=== PATIENT | female | born 1980 | race Caucasian/White ===

== ENCOUNTER 2016-06-24 13:57 | Emergency (ER) | payer BC ==
[2016-06-24 14:11] VITALS: BP 144/81
[2016-06-24] MEDS ORDERED: Sodium Chloride 0.9% 1,000 ML IV ONE (14:47)
--- NOTE | 2016-06-24 14:47 | EDM.PDOC ---
ED HPI GENERAL MEDICAL PROBLEM - General Chief Complaint: General Stated Complaint: dizzy/trouble walking Time Seen by Provider: 06/24/16 14:30 Source of Information: Reports: Patient History Limitations: Reports: No limitations - History of Present Illness INITIAL COMMENTS - FREE TEXT/NARRATIVE: HISTORY AND PHYSICAL: History of present illness: [Patient comes to the emergency room for evaluation of dizziness which began at 9 PM last night. She feels as though it's worsened today. She was diagnosed with a sinus infection one week ago by a nurse practitioner at [facility] and has completed one week of amoxicillin. She was seen back only if it is today where a physical therapist attempted maneuvers to reduce the vertigo. This was unsuccessful and she was referred to the ER for further evaluation. She complains of feeling as though the room is spinning around her which is causing nausea. She had 4 episodes of vomiting earlier today. Denies fever and chills. Overall her sinus symptoms have improved since starting the amoxicillin. No abdominal pain, chest pain, shortness of breath or difficulty breathing. She has not fallen or had. No recent trauma or injuries.] Review of systems: As per history of present illness and below otherwise all systems reviewed and negative. Past medical history: As per history of present illness and as reviewed below otherwise noncontributory. Surgical history: As per history of present illness and as reviewed below otherwise noncontributory. Social history: No reported history of drug or alcohol abuse. Family history: As per history of present illness and as reviewed below otherwise noncontributory. Physical exam: HEENT: Atraumatic, normocephalic. PERRLA. EOMI. negative for conjunctival pallor or scleral icterus. TMs are pearly bonner and intact bilaterally. mucous membranes moist, throat clear, bases nontender with palpation. neck supple, nontender, no lymphadenopathy. Lungs: Clear to auscultation, breath sounds equal bilaterally. No wheezing crackles or rales. Heart: S1S2, regular rate and rhythm. Abdomen: Soft, nondistended, nontender. Genitourinary: Deferred. Rectal: Deferred. Extremities: Atraumatic, no swelling or cyanosis. Feels dizzy with sitting at the edge of bed. Neurovascular unremarkable. Neuro: Awake, alert, oriented. Cranial nerves II through XII unremarkable. Cerebellum unremarkable. Motor and sensory unremarkable throughout. Exam nonfocal. Diagnostics: [CT head w/o contrast ] Therapeutics: [Valium 2.5mg IV, 1 liter NS] Impression: [vertigo] Plan: Discussed with patient that head CT is unremarkable. Patient reports moderate improvement in symptoms with IV fluids and Valium. Rx is given for Meclizine 25 mg #20 sig one by mouth every 8 hours as needed for dizziness zero refills. Followup with PT and PCP tomorrow. Return to ER as needed as discussed. She is in agreement with today's plan all of her questions are answered and concerns are addressed.] Definitive disposition and diagnosis as appropriate pending reevaluation and review of above. - Related Data Allergies Allergy/AdvReac Type Severity Reaction Status Date / Time No Known Allergies Allergy Verified 06/24/16 14:08 Home Meds: Home Meds Amoxicillin/Potassium Clav [Amox Tr-K Clv 875-125 mg Tab] 1 each PO BID [History] Fluticasone Propionate [Flonase] 1 puff NASBOTH DAILY 06/24/16 [History] Past Medical History - Past Health History Medical/Surgical History: Denies Medical/Surgical History Social & Family History - Family History Family Medical History: Noncontributory - Tobacco Use Smoking Status *Q: Never Smoker Years of Tobacco use: 15 Second Hand Smoke Exposure: No - Caffeine Use Caffeine Use: Reports: None - Recreational Drug Use Recreational Drug Use: No ED ROS GENERAL - Review of Systems Review Of Systems: ROS reveals no pertinent complaints other than HPI. ED EXAM, GENERAL - Physical Exam Exam: See Below Course - Vital Signs Last Recorded V/S: Last Vital Signs Temp 97.8 F 06/24/16 14:08 Pulse 79 06/24/16 14:08 Resp 16 06/24/16 14:08 BP 144/81 H 06/24/16 14:08 Pulse Ox 97 06/24/16 14:08 - Orders/Labs/Meds Meds: Medications Discontinued Medications Generic Name Dose Route Start Last Admin Trade Name Freq PRN Reason Stop Dose Admin Diazepam 2.5 mg 06/24/16 14:47 06/24/16 15:32 Valium IVPUSH 06/24/16 14:48 2.5 mg ONETIME ONE Administration Sodium Chloride 1,000 mls @ 999 mls/hr 06/24/16 14:47 06/24/16 15:33 Normal Saline IV 06/24/16 15:47 999 mls/hr STAT ONE Administration Ondansetron HCl 4 mg 06/24/16 16:10 06/24/16 16:28 Zofran IVPUSH 06/24/16 16:11 4 mg ONETIME ONE Administration Departure - Departure Time of Disposition: 17:00 Disposition: Home, Self-Care 01 Condition: good Clinical Impression: Vertigo - Discharge Information Instructions: Vertigo, [id number] Referrals: PCP,None [Primary Care Provider] - Forms: ED Department Discharge Additional Instructions: The following information is given to patients seen in the emergency department who are being discharged to home. This information is to outline your options for follow-up care. We provide all patients seen in our emergency department with a follow-up referral. The need for follow-up, as well as the timing and circumstances, are variable depending upon the specifics of your emergency department visit. If you don't have a primary care physician on staff, we will provide you with a referral. We always advise you to contact your personal physician following an emergency department visit to inform them of the circumstance of the visit and for follow-up with them and/or the need for any referrals to a consulting specialist. The emergency department will also refer you to a specialist when appropriate. This referral assures that you have the opportunity for follow-up care with a specialist. All of these measure are taken in an effort to provide you with optimal care, which includes your follow-up. Under all circumstances we always encourage you to contact your private physician who remains a resource for coordinating your care. When calling for follow-up care, please make the office aware that this follow-up is from your recent emergency room visit. If for any reason you are refused follow-up, please contact the [facility] emergency department at and asked to speak to the emergency department charge nurse. [facility] [address] [place] [id number] Followup with your primary care provider or at the clinic listed above in 48-72 hours. You have vertigo. You can take meclizine every 8 hours as prescribed, as needed for dizziness. Return to ER as needed as discussed.
[2016-06-24] MEDS ORDERED: Ondansetron 4 MG/2 ML SDV IVPUSH ONE (16:10)
--- NOTE | 2016-06-24 16:15 | CT ---
EXAMINATION: Non contrast CT head. Coronal and sagittal reformats. HISTORY: pain FINDINGS: No evidence of intra or extra axial hemorrhage, mass, midline shift, hydrocephalus or edema. No hypoattenuation changes in the major vascular territories to suggest acute infarct. No abnormal intracranial calcifications are detected. No evidence of substantial vascular calcifica tions. Paranasal sinuses and mastoid air cells are well aerated without substantial findings. Pituitary fossa appears unremarkable. Calvarium is intact. No evidence of skull fracture. IMPRESSION: No acute intracranial findings.
== END 2016-06-24 17:08 | disposition home or self-care (01) ==
LOC: MW.ED 13:57
DX: R42 Dizziness and giddiness (principal)
CPT/HCPCS: 70450; 96361; 96374; 96375; 99284; J2405; J3360; J7040

== ENCOUNTER 2016-08-27 06:25 | Day surgery (SDC) | payer BC ==
[2016-08-26 14:44] LABS: CHLORIDE,CL 107 mmol/L (98-110); SODIUM,NA 140 mmol/L (136-146)
[~2016-08-27 06:25] MED LIST: Sodium Chloride 0.9% 10 ML Syringe FLUSH PRN; Sodium Chloride 0.9% 2.5 ML Syringe FLUSH PRN; ceFAZolin 2 GM in Premix Bag 1 BAG IV ONE
[2016-08-27] MEDS: Lactated Ringers 1,000 ML IV SCH ×2 (06:38→11:13)
[2016-08-27] MEDS ORDERED: Rocuronium 10 MG/ML 10 ML Syringe ONE (07:04)
[2016-08-27] MEDS ORDERED: Propofol 200 MG/20 ML SDV ONE (07:04)
[2016-08-27] MEDS ORDERED: Ondansetron 4 MG/2 ML SDV ONE (07:04)
[2016-08-27] MEDS ORDERED: Neostigmine Methylsulfate 1 MG/ML 5 ML Syringe ONE (07:04)
[2016-08-27] MEDS ORDERED: Midazolam 1 MG/ML 2 ML SDV ONE ×2 (07:04→10:10)
[2016-08-27] MEDS ORDERED: fentaNYL 250 MCG/5 ML SDV ONE (07:04)
[2016-08-27] MEDS ORDERED: Lidocaine 2% 5 ML SDV ONE (07:04)
[2016-08-27] MEDS ORDERED: Sodium Chloride 0.9% 20 ML ONE (07:07)
[2016-08-27] MEDS ORDERED: ceFAZolin 1 GM Vial ONE (07:07)
--- NOTE | 2016-08-27 07:12 | PCM.PREANE ---
Preanesthetic Assessment - Anesthesia/Transfusion/Family Hx Anesthesia History: No Prior Anesthesia Family History of Anesthesia Reaction: No Transfusion History: No Prior Transfusion(s) Intubation History: Unknown - Review of Systems General: No Symptoms Pulmonary: No Symptoms Cardiovascular: No Symptoms Gastrointestinal: No symptoms Neurological: No Symptoms Other: Reports: None - Physical Assessment O2 Sat by Pulse Oximetry: 97 Respiratory Rate: 16 Vital Signs: Last Vital Signs Temp 36.3 C 08/27/16 06:34 Pulse 95 08/27/16 06:34 Resp 16 08/27/16 06:34 BP 126/78 08/27/16 06:34 Pulse Ox 97 08/27/16 06:34 Height: 1.7 m Weight: 96.615 kg ASA Class: 2 Mental Status: Alert & Oriented x3 Airway Class: Mallampati = 2 Dentition: Reports: Normal Dentition Thyro-Mental Finger Breadths: 3 Mouth Opening Finger Breadths: 2 ROM/Head Extension: Full Lungs: Clear to auscultation, Normal respiratory effort Cardiovascular: Regular Rate, Regular Rhythm - Lab Values: Laboratory Last Values WBC 6.69 K/uL (4.0-11.0) 08/26/16 14:17 RBC 4.58 M/uL (4.30-5.90) 08/26/16 14:17 Hgb 12.8 g/dL (12.0-16.0) 08/26/16 14:17 Hct 38.8 % (36.0-46.0) 08/26/16 14:17 MCV 84.7 fL (80.0-98.0) 08/26/16 14:17 MCH 27.9 pg (27.0-32.0) 08/26/16 14:17 MCHC 33.0 g/dL (31.0-37.0) 08/26/16 14:17 RDW Std Deviation 40.7 fl (28.0-62.0) 08/26/16 14:17 RDW Coeff of Rehan 13 % (11.0-15.0) 08/26/16 14:17 Plt Count 214 K/uL (150-400) 08/26/16 14:17 MPV 10.40 fL (7.40-12.00) 08/26/16 14:17 Nucleated RBC % 0.0 /100WBC 08/26/16 14:17 Nucleated RBCs # 0 K/uL 08/26/16 14:17 Sodium 140 mmol/L (136-146) 08/26/16 14:17 Potassium 3.7 mmol/L (3.5-5.1) 08/26/16 14:17 Chloride 107 mmol/L (98-110) 08/26/16 14:17 Carbon Dioxide 24 mmol/L (21-31) 08/26/16 14:17 BUN 11 mg/dL (6.0-23.0) 08/26/16 14:17 Creatinine 0.8 mg/dL (0.6-1.5) 08/26/16 14:17 Est Cr Clr Drug Dosing 92.72 mL/min 08/26/16 14:17 Estimated GFR (MDRD) > 60.0 ml/min 08/26/16 14:17 Glucose 111 mg/dL (60-110) H 08/26/16 14:17 Calcium 8.9 mg/dL (8.8-10.8) 08/26/16 14:17 HCG, Qual NEGATIVE (NEG) 08/26/16 14:17 Blood Type A POSITIVE 08/26/16 14:17 Antibody Screen NEGATIVE 08/26/16 14:17 - Allergies Allergies/Adverse Reactions: Allergies Allergy/AdvReac Type Severity Reaction Status Date / Time No Known Allergies Allergy Verified 06/24/16 14:08 - Blood Blood Available: No - Anesthesia Plan Pre-Op Medication Ordered: None - Acknowledgements Anesthesia Type Planned: General Anesthesia Pt an Appropriate Candidate for the Planned Anesthesia: Yes Alternatives and Risks of Anesthesia Discussed w Pt/Guardian: Yes Pt/Guardian Understands and Agrees with Anesthesia Plan: Yes PreAnesthesia Questionnaire - Past Health History Medical/Surgical History: Denies Medical/Surgical History HEENT History: Reports: Other (See Below) Other HEENT History: wears glasses BUSINESS PROCESS ENGINEER History: Reports: Dysfunctional Uterine Bleeding, Endocrine/Metabolic History: Reports: Obesity/BMI 30+ - Past Surgical History Head Surgeries/Procedures: Reports: None - SUBSTANCE USE Smoking Status *Q: Former Smoker (quit about 2 years ago) Second Hand Smoke Exposure: No Recreational Drug Use History: No - HOME MEDS Home Medications: Home Meds . [No Known Home Meds] 08/24/16 [History] - CURRENT (IN HOUSE) MEDS Current Meds: Current Medications Lactated Ringer's (Ringers, Lactated) 1,000 mls @ 125 mls/hr IV ASDIRECTED SHELLY Last Admin: 08/27/16 06:38 Dose: 125 mls/hr Sodium Chloride (Saline Flush) 10 ml FLUSH ASDIRECTED PRN PRN Reason: Keep Vein Open Sodium Chloride (Saline Flush) 2.5 ml FLUSH ASDIRECTED PRN PRN Reason: Keep Vein Open Discontinued Medications Fentanyl (Sublimaze) Confirm Administered Dose 250 mcg .ROUTE .STK-MED ONE Stop: 08/27/16 07:05 Glycopyrrolate () Confirm Administered Dose 1 mg .ROUTE .STK-MED ONE Stop: 08/27/16 07:05 Cefazolin Sodium/Dextrose 2 gm (/ Premix) 50 mls @ 100 mls/hr IV ONETIME ONE Stop: 08/26/16 14:36 Lidocaine (Xylocaine-Mpf 2%) Confirm Administered Dose 5 ml .ROUTE .STK-MED ONE Stop: 08/27/16 07:05 Midazolam HCl (Versed 1 Mg/Ml) Confirm Administered Dose 2 mg .ROUTE .STK-MED ONE Stop: 08/27/16 07:05 Neostigmine Methylsulfate (Neostigmine) Confirm Administered Dose 5 mg .ROUTE .STK-MED ONE Stop: 08/27/16 07:05 Ondansetron HCl (Zofran) Confirm Administered Dose 4 mg .ROUTE .STK-MED ONE Stop: 08/27/16 07:05 Propofol (Diprivan 20 Ml) Confirm Administered Dose 200 mg .ROUTE .STK-MED ONE Stop: 08/27/16 07:05 Rocuronium [place] (Zemuron) Confirm Administered Dose 100 mg .ROUTE .STK-MED ONE Stop: 08/27/16 07:05
[2016-08-27] MEDS ORDERED: Fluorescein 5 ML Vial ONE (07:43)
[2016-08-27] MEDS ORDERED: Furosemide 40 MG/4 ML VIAL ONE (08:55)
[2016-08-27] MEDS ORDERED: ePHEDrine 50 MG/ML SDV ONE (09:17)
[2016-08-27] MEDS ORDERED: Dexamethasone 4 MG/ML 5 ML MDV ONE (09:24)
[2016-08-27] MEDS ORDERED: fentaNYL 100 MCG/2 ML SDV ONE ×2 (09:25→10:10)
[2016-08-27] MEDS ORDERED: Ketorolac 30 MG/ML SDV IVPUSH PRN (09:45)
[2016-08-27] MEDS ORDERED: Promethazine 25 MG/ML SDV IM PRN (09:45)
[2016-08-27] MEDS ORDERED: Ondansetron 4 MG/2 ML SDV IVPUSH PRN (09:45)
--- NOTE | 2016-08-27 09:49 | PCM.OPNOTE ---
- General Post-Op/Procedure Note Date of Surgery/Procedure: 08/27/16 Operative Procedure(s): TVH, Bilat.Salpengectomy and cystoscopy Pre Op Diagnosis: menorraghia Post-Op Diagnosis: Same Anesthesia Technique: General ET tube Primary Surgeon: Bob Horton Jackscrew Worker: Yumiko Flower EBL in mLs: 100 Complications: None Condition: Good
[2016-08-27] MEDS: fentaNYL 100 MCG/2 ML SDV IVPUSH PRN ×2 (10:15→10:20)
--- NOTE | 2016-08-27 10:28 | PCM.POSTAN ---
POST ANESTHESIA ASSESSMENT - MENTAL STATUS Mental Status: alert, oriented - RESPIRATORY Respiratory Status: respiratory rate WNL, airway patent, O2 saturation stable - CARDIOVASCULAR CV Status: pulse rate WNL, blood pressure stable - GASTROINTESTINAL GI Status: no symptoms - PAIN Pain Score: 5 - POST OP HYDRATION Hydration Status: adequate & stable - OBSERVATIONS Free Text/Narrative:: no anesthesia problems
--- NOTE | 2016-08-27 10:56 | OR ---
SURGEON: Bob Horton MD DATE OF PROCEDURE: PREOPERATIVE DIAGNOSIS: Menometrorrhagia. POSTOPERATIVE DIAGNOSIS: Menometrorrhagia. OPERATION PERFORMED: Total vaginal hysterectomy, bilateral salpingectomy, preserving both ovary and cystoscopy. ROW BOSS: MESERET Paez. ANESTHESIA: General endotracheal intubation, Pedro Pantoja and Dr. Anderson. ESTIMATED BLOOD LOSS: Less than 100 mL. COMPLICATIONS: None. FINDINGS: Uterus about 8 weeks' size. Both ovaries are essentially normal. INDICATIONS FOR SURGERY: Ryder refer to the admit note. PROCEDURE IN DETAIL: The patient was brought to the OR, properly identified, and after adequate level of general anesthesia, the patient was placed in lithotomy position. Prepped and draped in sterile fashion as usual. A short-weighted speculum was placed in the vagina. A straight catheter was used to empty the bladder and then single- tooth tenaculum was applied to the cervix. A circular incision in the vaginal mucosa around the cervix was done with electrocautery and then the posterior cul- de-sac was entered posteriorly using Velasquez. The perineum and the vagina were tied posteriorly and held for further identification and then the short weighted speculum was placed with an extending long weighted speculum and the uterosacral ligament was identified from both sides, clamped with a curved Zeppelin, transected, and suture ligated in a Candelaria fashion and held for further identification. The same thing was done with the cardinal ligament and then the cervicovesical space entered anteriorly retracting the bladder completely away from the operative field. The anterior peritoneum was entered. The broad ligament from both sides clamped with curved Zeppelin, transected, and suture ligated with 2-0 Vicryl pop-off and the uterine vessel suture ligated at this time. Then, the uterus delivered posteriorly. The superior pedicle was clamped with a 90-degree Zeppelin, transected, and uterus was removed. The superior pedicle tied twice with a free tie. Next, attention was paid to the tubes and then right angle clamp applied to the mesosalpinx on the base of the tubes and both tube was resected and removed and clamp tied with a free tie. Inspection of the operative field shows no oozing, no bleeding. The uterosacral ligament and cardinal ligament anchored to the vagina at 3 and 9 o'clock for added vaginal support and then we proceeded to close the vaginal cuff with 2-0 Vicryl interrupted [id number] sutures. Once this was done, cystoscopy was performed. The bladder was intact. Urine was seen coming from both ureteric orifices. Thus, the patency of both ureters verified. Satisfied with these findings, the procedure ended. Instrument and sponge counts were correct x2. The patient tolerated the procedure well, went to recovery room in stable general condition. AWILDA / ADRIANO /[id number]
[2016-08-27] MEDS: Acetaminophen/oxyCODONE 325-5 MG Tab PO PRN ×3 (11:12→22:41)
[2016-08-27] MEDS: Morphine 4 MG/ML Syringe IVPUSH PRN ×2 (11:50→14:34)
[2016-08-28 05:30] LABS: CHLORIDE,CL 108 mmol/L (98-110); SODIUM,NA 140 mmol/L (136-146)
[2016-08-28 08:10] VITALS: BP 113/57
--- NOTE | 2016-08-28 10:10 | PCM.SURGPN ---
- General Info Date of Service: 08/28/16 POD#: 1 Functional Status: Reports: pain controlled - Review of Systems General: Reports: No Symptoms HEENT: Reports: no symptoms Pulmonary: Reports: no symptoms Cardiovascular: Reports: No Symptoms Gastrointestinal: Reports: No symptoms Genitourinary: Reports: no symptoms Musculoskeletal: Reports: no symptoms Skin: Reports: no symptoms Neurological: Reports: No Symptoms Psychiatric: Reports: no symptoms - Patient Data Vitals - most recent: Last Vital Signs Temp 36.3 C 08/28/16 08:00 Pulse 71 08/28/16 08:00 Resp 16 08/28/16 08:00 BP 113/57 L 08/28/16 08:00 Pulse Ox 94 L 08/28/16 08:00 Weight - most recent: 96.615 kg I&O - last 24 hours: Intake & Output 08/27/16 08/28/16 08/28/16 22:59 06:59 14:59 Intake Total 420 1000 Output Total 500 3000 Balance -80 -2000 Lab Results last 24 hrs: Laboratory Results - last 24 hr 08/28/16 08/28/16 Range/Units 04:38 04:38 WBC 10.08 (4.0-11.0) K/uL RBC 4.07 L (4.30-5.90) M/uL Hgb 11.3 L (12.0-16.0) g/dL Hct 34.8 L (36.0-46.0) % MCV 85.5 (80.0-98.0) fL MCH 27.8 (27.0-32.0) pg MCHC 32.5 (31.0-37.0) g/dL RDW Std Deviation 41.6 (28.0-62.0) fl RDW Coeff of Rehan 13 (11.0-15.0) % Plt Count 215 (150-400) K/uL MPV 10.80 (7.40-12.00) fL Neut % (Auto) 77.8 (48.0-80.0) % Lymph % (Auto) 13.6 L (16.0-40.0) % [place] % (Auto) 8.5 (0.0-15.0) % Eos % (Auto) 0.0 (0.0-7.0) % Baso % (Auto) 0.1 (0.0-1.5) % Neut # (Auto) 7.8 H (1.4-5.7) K/uL Lymph # (Auto) 1.4 (0.6-2.4) K/uL [place] # (Auto) 0.9 H (0.0-0.8) K/uL Eos # (Auto) 0.0 (0.0-0.7) K/uL Baso # (Auto) 0.0 (0.0-0.1) K/uL Nucleated RBC % 0.0 /100WBC Nucleated RBCs # 0 K/uL Sodium 140 (136-146) mmol/L Potassium 4.2 (3.5-5.1) mmol/L Chloride 108 (98-110) mmol/L Carbon Dioxide 25 (21-31) mmol/L BUN 7 (6.0-23.0) mg/dL Creatinine 0.7 (0.6-1.5) mg/dL Est Cr Clr Drug Dosing 105.97 mL/min Estimated GFR (MDRD) > 60.0 ml/min Glucose 120 H (60-110) mg/dL Calcium 8.9 (8.8-10.8) mg/dL Med Orders - Current: Current Medications Ketorolac Tromethamine (Toradol) 30 mg IVPUSH Q6H PRN PRN Reason: Pain (severe 7-10) Stop: 09/01/16 09:45 Last Admin: 08/27/16 10:10 Dose: 30 mg Morphine Sulfate (Morphine) 4 mg IVPUSH Q2H PRN PRN Reason: Pain (severe 7-10) Last Admin: 08/27/16 14:34 Dose: 4 mg Ondansetron HCl (Zofran) 4 mg IVPUSH Q6H PRN PRN Reason: Nausea/Vomiting Oxycodone/Acetaminophen (Percocet 325-5 Mg) 2 tab PO Q4H PRN PRN Reason: Pain (moderate 4-6) Last Admin: 08/27/16 22:41 Dose: 2 tab Promethazine HCl (Phenergan) 25 mg IM Q6H PRN PRN Reason: Nausea/Vomiting Last Admin: 08/27/16 11:43 Dose: 25 mg Sodium Chloride (Saline Flush) 10 ml FLUSH ASDIRECTED PRN PRN Reason: Keep Vein Open Sodium Chloride (Saline Flush) 2.5 ml FLUSH ASDIRECTED PRN PRN Reason: Keep Vein Open Discontinued Medications Cefazolin Sodium (Ancef) Confirm Administered Dose 2 gm .ROUTE .STK-MED ONE Stop: 08/27/16 07:08 Dexamethasone (Dexamethasone) Confirm Administered Dose 20 mg .ROUTE .STK-MED ONE Stop: 08/27/16 09:25 Ephedrine Sulfate (Ephedrine Sulfate) Confirm Administered Dose 50 mg .ROUTE .STK-MED ONE Stop: 08/27/16 09:18 Fentanyl (Sublimaze) Confirm Administered Dose 250 mcg .ROUTE .STK-MED ONE Stop: 08/27/16 07:05 Fentanyl (Sublimaze) 50 mcg IVPUSH Q5M PRN PRN Reason: Pain (severe 7-10) Stop: 08/28/16 09:22 Last Admin: 08/27/16 10:20 Dose: 50 mcg Fentanyl (Sublimaze) Confirm Administered Dose 100 mcg .ROUTE .STK-MED ONE Stop: 08/27/16 09:26 Fentanyl (Sublimaze) Confirm Administered Dose 100 mcg .ROUTE .STK-MED ONE Stop: 08/27/16 10:11 Fluorescein Sodium (Ak-Fluor) Confirm Administered Dose 5 ml .ROUTE .STK-MED ONE Stop: 08/27/16 07:44 Furosemide (Lasix) Confirm Administered Dose 40 mg .ROUTE .STK-MED ONE Stop: 08/27/16 08:56 Glycopyrrolate () Confirm Administered Dose 1 mg .ROUTE .STK-MED ONE Stop: 08/27/16 07:05 Glycopyrrolate () Confirm Administered Dose 1 mg .ROUTE .STK-MED ONE Stop: 08/27/16 09:18 Lactated Ringer's (Ringers, Lactated) 1,000 mls @ 125 mls/hr IV ASDIRECTED SHELLY Last Admin: 08/27/16 11:13 Dose: 125 mls/hr Cefazolin Sodium/Dextrose 2 gm (/ Premix) 50 mls @ 100 mls/hr IV ONETIME ONE Stop: 08/26/16 14:36 Last Admin: 08/27/16 11:11 Dose: Not Given Sodium Chloride (Normal Saline) Confirm Administered Dose 20 mls @ as directed .ROUTE .STK-MED ONE Stop: 08/27/16 07:08 Lidocaine (Xylocaine-Mpf 2%) Confirm Administered Dose 5 ml .ROUTE .STK-MED ONE Stop: 08/27/16 07:05 Midazolam HCl (Versed 1 Mg/Ml) Confirm Administered Dose 2 mg .ROUTE .STK-MED ONE Stop: 08/27/16 07:05 Midazolam HCl (Versed 1 Mg/Ml) Confirm Administered Dose 2 mg .ROUTE .STK-MED ONE Stop: 08/27/16 10:11 Neostigmine Methylsulfate (Neostigmine) Confirm Administered Dose 5 mg .ROUTE .STK-MED ONE Stop: 08/27/16 07:05 Ondansetron HCl (Zofran) Confirm Administered Dose 4 mg .ROUTE .STK-MED ONE Stop: 08/27/16 07:05 Propofol (Diprivan 20 Ml) Confirm Administered Dose 200 mg .ROUTE .STK-MED ONE Stop: 08/27/16 07:05 Rocuronium [place] (Zemuron) Confirm Administered Dose 100 mg .ROUTE .STK-MED ONE Stop: 08/27/16 07:05 - Exam Wound/Incisions: healing well General: alert, oriented HEENT: Pupils equal Neck: supple Lungs: Clear to auscultation, Normal respiratory effort Cardiovascular: Regular Rate, Regular Rhythm Abdomen: bowel sounds present, soft, no tenderness, no distension Extremities: no edema Skin: warm, dry, intact Neurological: no new focal deficit Psy/Mental Status: alert, normal affect, normal mood - Problem List Review Problem List Initiated/Reviewed/Updated: Yes - My Orders Last 24 Hours: Active Orders 24 hr Category Date Time Status Patient Status [ADT] Routine ADT 08/27/16 09:45 Active Antiembolic Devices [RC] PER UNIT ROUTINE Care 08/27/16 09:45 Active Notify Provider Vital Signs [RC] ASDIRECTED Care 08/27/16 09:45 Active RT Incentive Spirometry [RC] Q2HWA Care 08/27/16 09:45 Active Up With Assistance [RC] PER UNIT ROUTINE Care 08/27/16 09:45 Active Up ad Tamara [RC] PER UNIT ROUTINE Care 08/27/16 09:45 Active Vital Signs [RC] PER UNIT ROUTINE Care 08/27/16 09:45 Active Regular Diet [DIET] Diet 08/27/16 Lunch Active Acetaminophen/oxyCODONE [Percocet 325-5 MG] Med 08/27/16 09:45 Active 2 tab PO Q4H PRN Ketorolac [Toradol] Med 08/27/16 09:45 Active 30 mg IVPUSH Q6H PRN Morphine Med 08/27/16 09:45 Active 4 mg IVPUSH Q2H PRN Ondansetron [Zofran] Med 08/27/16 09:45 Active 4 mg IVPUSH Q6H PRN Promethazine [Phenergan] Med 08/27/16 09:45 Active 25 mg IM Q6H PRN Peripheral IV Discontinue [OM.PC] Routine Oth 08/27/16 09:45 Ordered Sequential Compression Device [OM.PC] Per Unit Routine Oth 08/27/16 09:45 Ordered Resuscitation Status Routine Resus Stat 08/27/16 09:45 Ordered Medication Orders Ketorolac Tromethamine (Toradol) 30 mg IVPUSH Q6H PRN PRN Reason: Pain (severe 7-10) Stop: 09/01/16 09:45 Last Admin: 08/27/16 10:10 Dose: 30 mg Morphine Sulfate (Morphine) 4 mg IVPUSH Q2H PRN PRN Reason: Pain (severe 7-10) Last Admin: 08/27/16 14:34 Dose: 4 mg Admin: 08/27/16 11:50 Dose: 4 mg Ondansetron HCl (Zofran) 4 mg IVPUSH Q6H PRN PRN Reason: Nausea/Vomiting Oxycodone/Acetaminophen (Percocet 325-5 Mg) 2 tab PO Q4H PRN PRN Reason: Pain (moderate 4-6) Last Admin: 08/27/16 22:41 Dose: 2 tab Admin: 08/27/16 16:59 Dose: 2 tab Admin: 08/27/16 11:12 Dose: 2 tab Promethazine HCl (Phenergan) 25 mg IM Q6H PRN PRN Reason: Nausea/Vomiting Last Admin: 08/27/16 11:43 Dose: 25 mg Sodium Chloride (Saline Flush) 10 ml FLUSH ASDIRECTED PRN PRN Reason: Keep Vein Open Sodium Chloride (Saline Flush) 2.5 ml FLUSH ASDIRECTED PRN PRN Reason: Keep Vein Open - Assessment Assessment (Free Text/Narrative):: doing well
== END 2016-08-28 10:30 | disposition home or self-care (01) ==
LOC: MW.SDS 06:25 → MW.MS 10:52 → MW.SDS 08-28 10:30
PROVIDERS: ATTEND Obstetrics & Gynecology
PROC: 0UT97ZZ Resection of Uterus, Via Natural or Artificial Opening (ICD-10-PCS; principal; 2016-08-27)
PROC: 0UTC7ZZ Resection of Cervix, Via Natural or Artificial Opening (ICD-10-PCS; 2016-08-27)
PROC: 0UT77ZZ Resection of Bilateral Fallopian Tubes, Via Natural or Artificial Opening (ICD-10-PCS; 2016-08-27)
DX: N80.0 Endometriosis of uterus (principal); E66.9 Obesity, unspecified; Z68.33 Body mass index [BMI] 33.0-33.9, adult; Z87.891 Personal history of nicotine dependence
CPT/HCPCS: 36415; 58262; 80048; 84703; 85025; 85027; 86850; 86900; 86901; A9270; J0690; J1100; J1885; J2250; J2270; J2405; J2550; J3010; J7120; 00944; 88307; J1940; J2704